=== PATIENT | female | born 1950 | race Caucasian/White ===

== ENCOUNTER → 2016-11-28 | Outpatient (CLI) | payer MEDICARE, BC ==
--- NOTE | ~2016-11-28 | US128 ---
[id number] [facility] [address]. [place], [place] [address] [id number] MR#: [id number] Acc #: [id number] NAME: OSIEL STRINGER : 1950 SEX: F STUDY DATE/TIME: 11/28/2016 14:29 UNIT: CGUS ROOM: STUDY DESCRIPTION: US Thyroid Attending Physician: Sarmad Restrepo M.D. Referring Physician: Sarmad Restrepo M.D. Ordering Physician: Sarmad Restrepo M.D. Primary Care Physician: Kristen Banuelos M.D. MEDICAL IMAGING REPORT This report is preliminary unless electronic signature is present EXAM Thyroid ultrasound INDICATION Multiple thyroid nodules. These were identified on initial ultrasound from February 2015 with followup exam in October 2015. Patient is status post left thyroidectomy for prior mass on the left lobe of the thyroid gland. TECHNIQUE Olvera-scale and color Doppler sonographic images were obtained through the thyroid gland. FINDINGS Right lobe of thyroid gland is enlarged measuring 3.8 x 6.1 x 3.3 cm. Left lobe is surgically absent. There is a predominantly isoechoic nodular with a hypoechoic rim seen within the right lobe of the thyroid gland measuring 8.0 x 6.0 x 8.0 mm. This is unchanged when compared to the November 02, 2015 examination. A second nodule is seen within the superior pole of the right lobe of the thyroid gland measuring up to 2.8 x 1.3 x 3.1 cm. This is larger than on the prior study when it measured 2.3 x 0.9 x 2.8 cm. There is also a third complex nodule seen within the inferior pole of the right lobe of the thyroid gland measuring up to 3.9 x 2.7 x 4.0 cm. This may actually be several nodules measured together. This nodule probably has not significantly changed in size when compared to the prior exam. No residual thyroid parenchyma is seen on the left. IMPRESSION There is a nodule seen within the superior pole of the right lobe of the thyroid gland which I think may be larger on today's exam when compared to the prior studies. It does meet size criteria for percutaneous sampling and this is suggested if not previously performed. 2 additional nodules seen within the right lobe of the thyroid gland I do not think are significantly changed when compared to exams dating back February 2015. No new nodules are identified. Dictated by... Reshma Eller M.D. THIS IS AN ELECTRONICALLY VERIFIED REPORT Reshma Eller M.D. at 11/29/2016 5:22 PM TERESA/michelle TD: 11/29/2016 11:13 JOB #: [id number] MEDICAL IMAGING REPORT Page 1 of 1 COPY
== END | disposition home or self-care (01) ==
LOC: CGUS 14:11
DX: E04.1 Nontoxic single thyroid nodule (principal); E04.2 Nontoxic multinodular goiter
CPT/HCPCS: 76536

== ENCOUNTER → 2016-12-28 | Outpatient (CLI) | payer MEDICARE, BC ==
[2016-12-28 12:41] LABS: THYROID STIMULATING HORMONE 1.38 uIU/ml (0.34-5.60)
[2016-12-28 12:48] LABS: FREE THYROXIN (T4) 0.9 ng/dL (0.58-1.64)
== END | disposition home or self-care (01) ==
LOC: CLAB 11:02
PROVIDERS: Specialist
DX: E04.1 Nontoxic single thyroid nodule (principal)
CPT/HCPCS: 36415; 84439; 84443